=== PATIENT | male | born 1985 | race American Indian/Alaskan Native ===

== ENCOUNTER 2016-09-02 16:54 | Emergency (ER) | payer SELFPAY ==
[2016-09-02 20:01] VITALS: BP 128/73
--- NOTE | 2016-09-03 22:05 | Emergency Department Report ---
Entered by PARESH GUTIERREZ, acting as scribe for DEENA GALLEGOS NP. Abscess Boil HPI - HPI Chief Complaint: Skin/Abscess/Foreign Body Stated Complaint: SPIDER BITE Duration: 3 Days Location: Lower Extremity (right lateral leg) Severity: Moderate History: Yes Pain, Yes Purulent Drainage (white), No Fever, No Numbness, No Foreign Body, No Previous History, No Insect Bite HPI: 31 year male with no significant PMHx presents to the ED c/o an cellulitic ulcer on his right lateral leg that began 3 days ago. 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 The next morning he had a raw-flesh blister the size of a quarter. Associated symptoms include pain to affected area and purulent drainage, but he denies fever, chills, nausea, vomiting, numbness, tingling, and SOB. Rates right lateral leg pain a 7/10 in severity. Uses tobacoo products daily and consumes EtOH occasionally. NKDA. Home Medications: Previous Rx's Medication Instructions Recorded Last Taken Type Azithromycin [Zithromax] 250 mg PO DAILY #1 pkg 08/26/15 Unknown Rx Fluticasone [Flonase] 2 spray NS QDAY #1 bottle 08/26/15 Unknown Rx Loratadine [Claritin] 10 mg PO DAILY #30 tablet 08/26/15 Unknown Rx Prednisone [predniSONE 10 mg 10 mg PO .TAPER #1 tab.ds.pk 08/26/15 Unknown Rx (6-Day Pack, 21 Tabs)] Promethazine /Codeine 5 ml PO Q6H PRN #120 ml 08/26/15 Unknown Rx [Phenergan/Codeine 6.25-10 mg/5 ml] Doxycycline [Vibramycin CAP] 100 mg PO Q12HR 7 Days 09/02/16 Unknown Rx Sulfamethoxazole/Trimethoprim 1 each PO BID 7 Days 09/02/16 Unknown Rx [Bactrim DS TAB] Allergies/Adverse Reactions: Allergies Allergy/AdvReac Type Severity Reaction Status Date / Time No Known Allergies Allergy Verified 08/26/15 05:45 ED Review of Systems ROS: Stated complaint: SPIDER BITE Other details as noted in HPI Comment: All other systems reviewed and negative Constitutional: denies: chills, fever, other Eyes: denies: eye pain, eye discharge, vision change ENT: denies: ear pain, throat pain Respiratory: denies: orthopnea, shortness of breath, SOB with exertion, SOB at rest Cardiovascular: denies: dyspnea on exertion, orthopnea Gastrointestinal: denies: nausea, vomiting Musculoskeletal: denies: back pain, joint swelling, arthralgia Skin: other (3 cm cellulitic ulcer to right lateral leg with purulent drainage) . denies: rash Neurological: denies: numbness Psychiatric: denies: anxiety, depression ED Past Medical Hx - Past Medical History Previous Medical History?: Yes Hx Hypertension: No Hx CVA: No Hx Heart Attack/AMI: No Hx Congestive Heart Failure: No Hx Diabetes: No Hx Deep Vein Thrombosis: No Hx Pulmonary Embolism: No Hx GERD: No Hx Liver Disease: No Hx Renal Disease: No Hx Sickle Cell Disease: No Hx Arthritis: No Hx Headaches / Migraines: No Hx Seizures: No Hx Kidney Stones: No Hx Psychiatric Treatment: No Hx Asthma: No Hx COPD: No Hx Tuberculosis: No Hx Dementia: No Hx HIV: No Additional medical history: Bulging disc in lower back - Surgical History Past Surgical History?: Yes Hx Coronary Stent: No Hx Open Heart Surgery: No Hx Pacemaker: No Hx Internal Defibrillator: No Hx Cholecystectomy: No Hx Appendectomy: No Hx Breast Surgery: No Additional Surgical History: Cyst removed from ear - Social History Smoking Status: Current Every Day Smoker Substance Use Type: Alcohol, Marijuana - Medications Home Medications: Home Medications Medication Instructions Recorded Confirmed Last Taken Type Azithromycin [Zithromax] 250 mg PO DAILY #1 pkg 08/26/15 Unknown Rx Fluticasone [Flonase] 2 spray NS QDAY #1 bottle 08/26/15 Unknown Rx Loratadine [Claritin] 10 mg PO DAILY #30 tablet 08/26/15 Unknown Rx Prednisone [predniSONE 10 mg 10 mg PO .TAPER #1 tab.ds.pk 08/26/15 Unknown Rx (6-Day Pack, 21 Tabs)] Promethazine /Codeine 5 ml PO Q6H PRN #120 ml 08/26/15 Unknown Rx [Phenergan/Codeine 6.25-10 mg/5 ml] Doxycycline [Vibramycin CAP] 100 mg PO Q12HR 7 Days 09/02/16 Unknown Rx Sulfamethoxazole/Trimethoprim 1 each PO BID 7 Days 09/02/16 Unknown Rx [Bactrim DS TAB] ED Abscess Boil Physical Exam - Exam General: - General: No Limitations, alert, in no apparent distress Size: 3 cm (cellulitic ulcer that is warm to touch) Exam: Yes Tenderness, Yes Fluctuance (slight), Yes Surrounding Cellulites/ Erythema, Yes Normal Neurologic Exam, Yes Normal Circulation, No Lymphangitis, No Crepitation, No Heart Murmur Exam: - Head Exam: atraumatic, normocephalic. - Eye exam: Normal appearance. - ENT exam: mucous membranes moist. -Neck exam: Normal inspection, lymphadenopathy. - Respiratory exam: normal lung sounds bilaterally. No respiratory distress. - Cardiovascular Exam: Regular rate, normal rhythm. No systolic murmur, diastolic murmur, rubs, or gallop. - GI/Abdominal Exam: Abdomen is soft, normal bowel sounds. - Extremities Exam: normal inspection. - Back Exam: normal inspection. - Neurological Exam: Present: alert, oriented X3. - Skin exam: warm, dry, intact, normal color. No rash. 3 cm cellulitic ulcer on right lateral leg that is warm to touch. -Psychiatric exam: Present: normal affect, normal mood ED Course Vital Signs 09/02/16 17:16 Temperature 98.3 F Pulse Rate 67 Respiratory 16 Rate Blood Pressure 116/68 O2 Sat by Pulse 100 Oximetry - Reevaluation(s) Reevaluation #1: 09/02/16 18:41 Dr. Burris seen patient and agrees to d/c treatment plan. Critical care attestation.: If time is entered above; I have spent that time in minutes in the direct care of this critically ill patient, excluding procedure time. ED Medical Decision Making - Medical Decision Making Ed course: A 1-year-old male that presents with a cellulitic ulcer to her right lateral leg. 1- 3 cm cellulitis ulcer noted. 2- used 20 cc of normal saline to wash the area. 3- prescribed Bactrim and doxycycline at d/c 4- time of d/c patient did not seem toxic or ill in appearance. No signs of distress noted. 5- I instructed patient to keep area clean and dry. 6- Applied sterile dressing to wound 7- I used a black permanent marker to outline the cellulitic area. I instructed the patient to return back to emergency department if notice or swelling had increased past the black permanent marker. 7-Patient agreed with d/c plan and treatment. No questions noted at time of d/c. ED Disposition Clinical Impression: Cellulitis, Ulcer Disposition: DISCHARGED TO HOME OR SELFCARE Is pt being admited?: No Does the pt Need Aspirin: No Condition: Stable Instructions: Cellulitis (ED), Acute Wound Care (ED) Additional Instructions: Take medications as prescribed. 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 If symptoms worsen his report back to emergency room. Prescriptions: Doxycycline [Vibramycin CAP] 100 mg PO Q12HR 7 Days Sulfamethoxazole/Trimethoprim [Bactrim DS TAB] 1 each PO BID 7 Days Referrals: PRIMARY CARE,MD [Primary Care Provider] - 3-5 Days [facility] [Outside] - 3-[address] [facility] [Outside] - 3-5 Days This documentation as recorded by the MATT villa JASMINE,accurately reflects the service I personally performed and the decisions made by me,DEENA GALLEGOS, FORMATION FRACTURING OPERATOR.
== END 2016-09-02 20:02 | disposition home or self-care (01) ==
LOC: ED 16:54
DX: L97.919 Non-pressure chronic ulcer of unspecified part of right lower leg with unspecified severity (principal); L03.115 Cellulitis of right lower limb; F17.200 Nicotine dependence, unspecified, uncomplicated; F12.10 Cannabis abuse, uncomplicated
CPT/HCPCS: 99282